=== PATIENT | male | born 1950 | race Caucasian/White ===

== ENCOUNTER 2017-06-27 15:21 | Emergency (ER) | payer MEDICAID, MEDICARE ==
[2017-06-27] MEDS ORDERED: Lidocaine 1% 20 ML MDV INJECT ONE (15:36)
[2017-06-27] MEDS ORDERED: Diphtheria,Pertussis(Acell),Tetanus Vaccine 0.5 ML Syringe IM ONE (15:36)
[2017-06-27] MEDS ORDERED: Bacitracin Oint 1 GM U/D Packet TOP ONE (15:36)
--- NOTE | 2017-06-27 15:59 | EDM.PDOC ---
ED HPI GENERAL MEDICAL PROBLEM - General Chief Complaint: Laceration Stated Complaint: PT CUT HIS LT HAND Time Seen by Provider: 06/27/17 15:27 Source of Information: Reports: Patient History Limitations: Reports: No Limitations - History of Present Illness INITIAL COMMENTS - FREE TEXT/NARRATIVE: HISTORY AND PHYSICAL: History of present illness: Patient is a 66-year-old male who presents to the emergency room with complaints of a laceration to his left hand. He states he was using a table saw when a piece of wood kicked back and cut his second digit. Patient is unsure of his last tetanus. Review of systems: As per history of present illness and below otherwise all systems reviewed and negative. Past medical history: As per history of present illness and as reviewed below otherwise noncontributory. Surgical history: As per history of present illness and as reviewed below otherwise noncontributory. Social history: No reported history of drug or alcohol abuse. Family history: As per history of present illness and as reviewed below otherwise noncontributory. Physical exam: General: Old developed and well nourished 66-year-old male. Alert and oriented. Nontoxic appearing and in no acute distress. HEENT: Atraumatic, normocephalic, pupils equal and reactive bilaterally, negative for conjunctival pallor or scleral icterus, mucous membranes moist, throat clear, neck supple, nontender, trachea midline. No drooling or trismus noted. No meningeal signs Lungs: Clear to auscultation, breath sounds equal bilaterally, chest nontender. Heart: S1S2, regular rate and rhythm without overt murmur Abdomen: Soft, nondistended, nontender. Negative for masses. Negative for costovertebral tenderness. Pelvis: Stable nontender. Genitourinary: Deferred. Rectal: Deferred. Skin: 2 cm laceration noted to the left second digit over the heel knuckle. Patient is able to flex and extend all fingers without difficulty. Strong grasp. Appears to be no tendon involvement.. No lesions or rashes noted. Extremities: All extremities per self without difficulty or deficits. Laceration noted, see above. Radial pulse with capillary refill less than 3 seconds. Neurovascular unremarkable. Neuro: Awake, alert, oriented. Cranial nerves II through XII unremarkable. Cerebellum unremarkable. Motor and sensory unremarkable throughout. Exam nonfocal. Notes: Area was anesthetized with 1% lidocaine. Irrigated with wound wash and cleansed with chlorhexidine. The area has no tendon involvement. 4-0 nylon was used, #8 interrupted sutures. Patient tolerated well. Bacitracin nonstick dressing was applied. Splint applied to prevent bending of the knuckle. Diagnostics: [] Therapeutics: Tdap, 1% lidocaine, Bacitracin dressing. Impression: Laceration, left 2nd digit Plan: 1. Please keep the area clean and dry. Return for signs of infection. 2. Please be careful when using her hands as the stitches over your knuckle, if those break loose we are unable to re-stitch. 3. Sutures to be removed in 10 days. 4. Tylenol and/or ibuprofen as needed for pain management. 5. Follow-up with your primary caregiver in the next few days. Return to the ED as needed and as discussed. Definitive disposition and diagnosis as appropriate pending reevaluation and review of above. Left Hand Pain Score (Numeric/FACES): 3 - Related Data Allergies Allergy/AdvReac Type Severity Reaction Status Date / Time No Known Allergies Allergy Verified 06/27/17 15:37 Home Meds: Home Meds Ibuprofen [Motrin] 200 mg PO Q6H PRN 06/27/17 [History] Past Medical History - Past Surgical History HEENT Surgical History: Reports: Tonsillectomy Social & Family History - Family History Family Medical History: Noncontributory - Tobacco Use Smoking Status *Q: Current Every Day Smoker Years of Tobacco use: 25 Packs/Tins Daily: 1 - Caffeine Use Caffeine Use: Reports: Coffee - Recreational Drug Use Recreational Drug Use: No ED ROS GENERAL - Review of Systems Review Of Systems: ROS reveals no pertinent complaints other than HPI. ED EXAM, SKIN/RASH Exam: See Below (See dictation) ED SKIN PROCEDURES - Laceration/Wound Repair Left Finger Lac/Wound length In cm: 2 Appearance: Subcutaneous, Linear Distal NVT: No Tendon Injury Local Anesthesia - Lidocaine (Xylocaine): 1% Plain Local Anesthetic Volume: 4cc Skin Prep: Chlorhexidine (Hibiciens), Saline Saline Irrigation (cc's): 20 Exploration/Debridement/Repair: Wound Explored, In a Bloodless Field, No Foreign Material Found Closed with: Sutures Suture Size: 4-0 # of Sutures: 8 Sterile Dressing Applied: Provider Tetanus Status Addressed: Yes Complications: No Course - Vital Signs Last Recorded V/S: Last Vital Signs Temp 98.0 F 06/27/17 15:33 Pulse 98 06/27/17 15:33 Resp 18 06/27/17 15:33 BP 181/105 H 06/27/17 15:33 Pulse Ox 97 06/27/17 15:33 - Orders/Labs/Meds Orders: Active Orders 24 hr Category Date Time Status Vaccines to be Administered [RC] PER UNIT ROUTINE Care 06/27/17 15:36 Active Meds: Medications Discontinued Medications Generic Name Dose Route Start Last Admin Trade Name Diann PRN Reason Stop Dose Admin Bacitracin 1 dose 06/27/17 15:36 06/27/17 15:48 Bacitracin Oint 1 Gm TOP 06/27/17 15:37 1 dose ONETIME ONE Administration Diphtheria/Tetanus/Acell Pertussis 0.5 ml 06/27/17 15:36 06/27/17 15:49 Adacel IM 06/27/17 15:37 0.5 ml .ONCE ONE Administration Lidocaine HCl 20 ml 06/27/17 15:36 06/27/17 15:48 Xylocaine 1% INJECT 06/27/17 15:37 20 ml ONETIME ONE Administration Departure - Departure Time of Disposition: 16:52 Disposition: Home, Self-Care 01 Clinical Impression: Laceration - Discharge Information Instructions: Laceration Care, Adult, [id number] Referrals: PCP,None [Primary Care Provider] - Forms: ED Department Discharge Additional Instructions: General dischargeThe following information is given to patients seen in the emergency department who are being discharged to home. This information is to outline your options for follow-up care. We provide all patients seen in our emergency department with a follow-up referral. The need for follow-up, as well as the timing and circumstances, are variable depending upon the specifics of your emergency department visit. If you don't have a primary care physician on staff, we will provide you with a referral. We always advise you to contact your personal physician following an emergency department visit to inform them of the circumstance of the visit and for follow-up with them and/or the need for any referrals to a consulting specialist. The emergency department will also refer you to a specialist when appropriate. This referral assures that you have the opportunity for follow-up care with a specialist. All of these measure are taken in an effort to provide you with optimal care, which includes your follow-up. Under all circumstances we always encourage you to contact your private physician who remains a resource for coordinating your care. When calling for follow-up care, please make the office aware that this follow-up is from your recent emergency room visit. If for any reason you are refused follow-up, please contact the [facility] Emergency Department at and asked to speak to the emergency department charge nurse. [facility] [address] [place] [id number] [facility] - [facility] ([facility]) Professional Building [address] [place] [address], [address] [place] [address] 1. Please keep the area clean and dry. Return for signs of infection. 2. Please be careful when using her hands as the stitches ARE over your knuckle , if those break loose we are unable to re-stitch. 3. Sutures to be removed in 10 days. 4. Tylenol and/or ibuprofen as needed for pain management. 5. Follow-up with your primary caregiver in the next few days. Return to the ED as needed and as discussed. - My Orders Last 24 Hours: My Active Orders 06/27/17 15:36 Vaccines to be Administered [RC] PER UNIT ROUTINE - Assessment/Plan Last 24 Hours: My Active Orders 06/27/17 15:36 Vaccines to be Administered [RC] PER UNIT ROUTINE
== END 2017-06-27 16:52 | disposition home or self-care (01) ==
LOC: MW.ED 15:21
DX: S61.211A Laceration without foreign body of left index finger without damage to nail, initial encounter (principal); F17.210 Nicotine dependence, cigarettes, uncomplicated; Z23 Encounter for immunization; W27.0XXA Contact with workbench tool, initial encounter
CPT/HCPCS: 12001; 90471; 90715; 99282; 99282-25

== ENCOUNTER 2020-07-15 09:12 | Emergency (ER) | payer MEDICARE, MEDICAID ==
[2020-07-15] MEDS ORDERED: Lidocaine 1% 50 ML MDV ONE (10:06)
--- NOTE | 2020-07-15 10:09 | EDM.PDOC ---
ED HPI GENERAL MEDICAL PROBLEM - General Chief Complaint: Lower Extremity Injury/Pain Stated Complaint: CUT FINGER LEFT HAND Time Seen by Provider: 07/15/20 09:37 Source of Information: Reports: Patient History Limitations: Reports: No Limitations - History of Present Illness INITIAL COMMENTS - FREE TEXT/NARRATIVE: Patient is a 69-year-old male who presents today for left hand injury. Patient was using a saw when the saw slipped and cut the tip of his ring finger and sliced his index finger as well. Patient denies any other injuries. left 4th finger Pain Score (Numeric/FACES): 5 - Related Data Allergies Allergy/AdvReac Type Severity Reaction Status Date / Time No Known Allergies Allergy Verified 07/15/20 09:39 Home Meds: Home Meds cephALEXin [Keflex] 500 mg PO Q8H 7 Days #21 cap 07/15/20 [Rx] Past Medical History - Past Health History Medical/Surgical History: Denies Medical/Surgical History - Past Surgical History HEENT Surgical History: Reports: Tonsillectomy Musculoskeletal Surgical History: Reports: Joint Replacement, Other (See Below) Other Musculoskeletal Surgeries/Procedures:: Bilateral Hip Replacement Social & Family History - Family History Family Medical History: No Pertinent Family History - Tobacco Use Tobacco Use Status *Q: Current Every Day Tobacco User Years of Tobacco use: 40 Packs/Tins Daily: 0.5 - Caffeine Use Caffeine Use: Reports: Coffee - Alcohol Use Days Per Week of Alcohol Use: 7 Number of Drinks Per Day: 5 Total Drinks Per Week: 35 - Recreational Drug Use Recreational Drug Use: No Review of Systems - Review of Systems Review Of Systems: See Below Constitutional: Reports: No Symptoms Eyes: Reports: No Symptoms Ears: Reports: No Symptoms Nose: Reports: No Symptoms Mouth/Throat: Reports: No Symptoms Respiratory: Reports: No Symptoms Cardiovascular: Reports: No Symptoms GI/Abdominal: Reports: No Symptoms Genitourinary: Reports: No Symptoms Musculoskeletal: Reports: Hand Pain Skin: Reports: No Symptoms Neurological: Reports: No Symptoms Psychiatric: Reports: No Symptoms ED EXAM, GENERAL - Physical Exam Exam: See Below Exam Limited By: No Limitations General Appearance: Alert, WD/WN, No Apparent Distress Eye Exam: Bilateral Eye: EOMI, PERRL Head: Atraumatic, Normocephalic Respiratory/Chest: No Respiratory Distress, Lungs Clear, Normal Breath Sounds Cardiovascular: Normal Peripheral Pulses, Regular Rate, Rhythm GI/Abdominal: Normal Bowel Sounds, Soft, Non-Tender Extremities: Other (partial amputation of right index and ringer finger on left hand at distal tip) ED TRAUMA EXTREMITY PROCEDURES - Additional/Other Procedure(s) Other (Free Text) Procedure(s): Patient had a amputation of the distal tip of his ring finger still seen on biopsy skin we cut the piece of skin there was some bleeding and we cauterized the distal tip of the finger the bleeding likely artery. Patient has good sensation good movement we did an dressed and wrapped the ring finger. There was a laceration to the palmar side of the index finger the patient refused to have sutured up we can clean that off place bacitracin gave the patient some IV Ancef and will have patient follow-up orthopedics. We were able to get Dr. Clifford and [facility] to follow-up with patient the patient states he may go to [place] will give patient a copy of the images if he does not like to [place] and have follow-up there. Course - Vital Signs Last Recorded V/S: Last Vital Signs Temp 98.8 F 07/15/20 09:36 Pulse 84 07/15/20 09:36 Resp 18 07/15/20 09:36 BP 171/87 H 07/15/20 09:36 Pulse Ox 95 07/15/20 09:36 - Orders/Labs/Meds Meds: Medications Discontinued Medications Generic Name Dose Route Start Last Admin Trade Name Freq PRN Reason Stop Dose Admin Cefazolin Sodium/Dextrose 1 gm 50 mls @ 100 mls/hr 07/15/20 10:36 07/15/20 10:56 / Premix IV 07/15/20 11:05 100 mls/hr ONETIME ONE Administration Lidocaine HCl 5 ml 07/15/20 09:49 07/15/20 09:57 Lidocaine 1% 5 Ml Sdv INJECT 07/15/20 09:50 5 ml ONETIME ONE Administration Lidocaine HCl Confirm 07/15/20 10:06 07/15/20 10:57 Lidocaine 1% 50 Ml Mdv Administered 07/15/20 10:07 Not Given Dose 50 ml .ROUTE .STK-MED ONE Lidocaine HCl 50 ml 07/15/20 10:12 07/15/20 10:57 Lidocaine 1% 10 Ml Mdv INJECT 07/15/20 10:13 Not Given ONETIME ONE Lidocaine HCl 50 ml 07/15/20 10:45 07/15/20 10:56 Lidocaine 1% 50 Ml Mdv INJECT 07/15/20 10:46 50 ml ONETIME ONE Administration Departure - Departure Time of Disposition: 12:28 Disposition: Home, Self-Care 01 Condition: Good Clinical Impression: Amputation finger - Discharge Information *PRESCRIPTION DRUG MONITORING PROGRAM REVIEWED*: Not Applicable *COPY OF PRESCRIPTION DRUG MONITORING REPORT IN PATIENT LUIZ: Not Applicable Prescriptions: cephALEXin [Keflex] 500 mg PO Q8H 7 Days #21 cap Instructions: Traumatic Finger Amputation Referrals: PCP,Not In Area [Primary Care Provider] - Forms: ED Department Discharge Additional Instructions: The following information is given to patients seen in the emergency department who are being discharged to home. This information is to outline your options for follow-up care. We provide all patients seen in our emergency department with a follow-up referral. The need for follow-up, as well as the timing and circumstances, are variable depending upon the specifics of your emergency department visit. If you don't have a primary care physician on staff, we will provide you with a referral. We always advise you to contact your personal physician following an emergency department visit to inform them of the circumstance of the visit and for follow-up with them and/or the need for any referrals to a consulting specialist. The emergency department will also refer you to a specialist when appropriate. This referral assures that you have the opportunity for follow-up care with a specialist. All of these measure are taken in an effort to provide you with optimal care, which includes your follow-up. Under all circumstances we always encourage you to contact your private physician who remains a resource for coordinating your care. When calling for follow-up care, please make the office aware that this follow-up is from your recent emergency room visit. If for any reason you are refused follow-up, please contact the [facility] Emergency Department at and asked to speak to the emergency department charge nurse. Please follow up with your primary care physician. If you do not have a primary care physician, see below: Andre Wright MD Hand and Wrist Surgery [phone] [place] [address] [place] [address] [facility] Floor Seen today after amputation of your distal tip your ring finger laceration to your index finger. We were able to remove the tip of your finger and place a dressing over to cover the area and she can see a hand surgeon. You needed to have the sutures of your index finger but she refused to have those done units of the wrist and not having that area sutured up. We placed dressings on both. Above we have a hand surgeon in [place] that you can consult and see this Saturday however he states he may go back to [place] if he could go to [place] please follow-up with a hand surgeon as soon as possible. We also sent home antibiotics please take those antibiotics as directed if you have any increased pain swelling fever chills please return to the ED. Sepsis Event Note (ED) - Evaluation Sepsis Screening Result: No Definite Risk - Focused Exam Vital Signs: Vital Signs Temp Pulse Resp BP Pulse Ox 07/15/20 09:36 98.8 F 84 18 171/87 H 95 - Assessment/Plan Plan: Patient is a 69-year-old male who presents today for possible rotation of his ring and index finger. Will obtain x-rays pain control and reassess.
[2020-07-15] MEDS ORDERED: Lidocaine 1% 10 ML MDV INJECT ONE (10:12)
[2020-07-15] MEDS ORDERED: ceFAZolin 1 GM in Premix Bag 1 BAG IV ONE (10:36)
--- NOTE | 2020-07-15 10:40 | CR ---
INDICATION: Trauma to left hand TECHNIQUE: Three view. FINDINGS: Comminuted near complete amputation of the tip of the left 4th digit is noted. No joint space involvement is seen. There is a fracture deformity off the tip of the left 2nd digit. Soft tissue defect noted. Third digit appears to be intact. There is mild degenerative change of the DIP joints. There is degenerative change of the 1st, 2nd and 3rd MCP joints. IMPRESSION: 1. Severe comminuted and incomplete amputation of the tip of the 4th digit noted on the left. 2. Mildly displaced fracture through the tip of the left 2nd digit is noted with soft tissue injury. Dictated by George Pena MD @ Jul 15 2020 10:35AM Signed by Dr. George Pena @ Jul 15 2020 10:38AM
[2020-07-15] MEDS ORDERED: Lidocaine 1% 50 ML MDV INJECT ONE (10:45)
== END 2020-07-15 12:46 | disposition home or self-care (01) ==
LOC: MW.ED 09:12
DX: S68.625A Partial traumatic transphalangeal amputation of left ring finger, initial encounter (principal); S68.620A Partial traumatic transphalangeal amputation of right index finger, initial encounter; Z72.0 Tobacco use; W27.0XXA Contact with workbench tool, initial encounter
CPT/HCPCS: 73130; 96365; 99283; J0690; J2001